=== PATIENT | male | born 1940 | race Caucasian/White ===

== ENCOUNTER 2023-06-25 19:13 | Emergency (ER) | payer MEDICARE, OTHER, SELFPAY ==
[2023-06-25 19:27] VITALS: BP 143/80
[2023-06-25 19:54] LABS: % Basophils 1.6 % (0-2); % Eosinophils 4.2 % (0-6); % Immature Granulocytes 0.4 % (0-0.5); % Lymphocytes 30.1 % (20.5-51.1); % Monocytes 7.6 % (1.7-9.3); % Neutrophils 56.1 % (42.2-75.2); Absolute Basophils 0.1 10^3/uL (0-0.2); Absolute Eosinophils 0.2 10^3/uL (0-0.7); Absolute Lymphocytes 1.5 10^3/uL (1.2-3.4); Absolute Monocytes 0.4 10^3/uL (0.1-0.6); Absolute Neutrophils 2.8 10^3/uL (1.4-6.5); Hematocrit 36.1 % (39.0-52.0); Hemoglobin 12.1 g/dL (13.0-18.0); Mean Corp Hgb Conc. 33.5 g/dL (33.0-37.0); Mean Corpuscular Volume 95.5 fL (80.0-94.0); Nucleated Red Blood Cells % 0 % (-); Platelet Count 240 10^3/uL (130-400); Red Blood Cell Count 3.78 10^6/uL (4.70-6.10); Red Cell Dist. Width 13.9 % (11.5-14.5)
[2023-06-25 20:02] LABS: Lactic Acid 1.2 mmol/L (0.7-2.0)
[2023-06-25 20:09] LABS: ALT (SGPT) 12 U/L (0-50); AST (SGOT) 21 U/L (17-59); Alkaline Phosphatase 64 U/L (38-126); Blood Urea Nitrogen 19 mg/dl (9-20); Calcium 9.5 mg/dl (8.4-10.2); Carbon Dioxide 25 mmol/L (22-30); Chloride 104 mmol/L (98-107); Glucose 115 mg/dl (70-99); Potassium 3.9 mmol/L (3.5-5.1); Sodium 141 mmol/L (135-145); Total Bilirubin 0.5 mg/dl (0.2-1.3); Total Protein 6.6 g/dl (6.3-8.2); eGFR > 60.00
[2023-06-25 22:24] VITALS: BP 148/78
[2023-06-25 23:08] VITALS: BP 129/75
--- NOTE | 2023-06-25 23:20 | EDRN ---
Updated patient on labs, and aware waiting for ultrasound report
--- NOTE | 2023-06-25 23:53 | ED.GENMED ---
History of Present Illness
General
Chief Complaint: Swelling
Source: patient and spouse
Exam Limitations: none
Time Seen by Provider: 06/25/23 23:01
Nursing documentation reviewed up to this point in time: agreed with
Travel History
Have you had any contact with someone who has COVID-19?: No
Do you have any symptoms of coronavirus? Fever > 100 degrees, chills, cough, shortness of breath, sore throat, loss of taste or smell, muscle aches, or headache?: No
History of Present Illness
History of Present Illness:
Patient status post left lower leg bypass surgery with Dr. Malcolm, vascular surgery, last month, presents to ED secondary to worsening swelling over the past 1 week. Patient was evaluated by Dr. Malcolm 1 week ago where he had graham removed from his
surgical site. Denies fever or chills. Denies loss of sensation or weakness of the affected leg. Denies trauma. Denies open drainage. Denies nausea or vomiting.
Past History
Past History
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
ED Past Surgical History: Orthopedic (lumbar spine fusion 2013) and Other (Vascular)
Social History
Tobacco: Non-smoker
Alcohol: None
Drug: None
Personal:
Living: with family
Employment: Retired
Family History
Family History: Other (reviewed and noncontributory)
Review of Systems
Review of Systems
Allergies reviewed?: Yes
All Other Systems: ROS reviewed and negative except as documented in HPI and ROS
Constitutional: Reports no symptoms
EENT: Reports no symptoms
Respiratory: Reports no symptoms
Cardiac: Reports no symptoms
ABD/GI: Reports no symptoms
: Reports no symptoms
Musculoskeletal: Reports other (Left leg swelling)
Skin: Reports no symptoms
Neurological: Reports no symptoms
Phy Exam
Physical Exam
Physical Exam:
Physical Exam
General: no apparent distress, not acutely ill. afebrile
Head: nc/at. eomi
Neck: supple. no meningeal signs.
Neuro: alert and oriented. no focal neurological deficits
Skin: LLE: well healed surgical scar noted with swelling/erythema, along with macular rash along lateral aspect. no open drainage.
Psychiatric: well kept. interactive and cooperative
Extremities: no edema. no calf tenderness.
Scores
Heart Failure Risk
Heart Failure Risk Score: Not Applicable
Course
Orders/Labs/Results
Orders:
Orders
06/25/23 19:43
Complete Blood Count/With Diff Urgent
Comprehensive Metabolic Panel Urgent
Lactate Level [Lactic Acid] Urgent
06/25/23 19:53
Periph Venous Lwr Ext Left US [US Periph Venous LOWER Ext LT] Urgent
Comment:
Reason For Exam: swelling
Abnormal Lab Results
06/25/23
19:43
RBC 3.78 L 10^6/uL
(4.70-6.10)
Hgb 12.1 L g/dL
(13.0-18.0)
Hct 36.1 L %
(39.0-52.0)
MCV 95.5 H fL
(80.0-94.0)
MCH 32.0 H pg
(27.0-31.0)
Glucose 115 H mg/dl
(70-99)
06/25/23 19:43
06/25/23 19:43
Vital Signs
Initial and Last Documented VS:
Initial Vital Signs
Temp Pulse Resp BP Pulse Ox
97.7 F 85 20 143/80 99
06/25/23 19:27 06/25/23 19:27 06/25/23 19:27 06/25/23 19:27 06/25/23 19:27
Last Documented Vital Signs
Temp Pulse Resp BP Pulse Ox
97.7 F 65 17 129/75 99
06/25/23 19:27 06/25/23 23:15 06/25/23 23:15 06/25/23 23:08 06/25/23 23:15
MDM/Problems Addressed
MDM/Problems Addressed:
Discussed findings with (vascular), including US report as well as photos via [employer]. Feels that findings are consistent with post-op swelling without any evidence of infection. Recommends elena wrap/elevation along with office f/u next
week.
*Critical Care Note
Total Time (30-74mins, 75-104mins- exclusive of procedures): Not Applicable
ED Attending Note
-
Portions of this chart may have been created with voice recognition software.� Occasional wrong word or��sound alike� substitutions may have occurred due to the inherent limitations of voice recognition software.
Discharge Plan
Departure
Patient Disposition: Home (Routine Discharge)
Date of Disposition: 06/26/23
Time of Disposition: 01:01
Patient with high blood pressure during this ER visit?: Yes
Condition: Good
Discharge Problem:
postop swelling
Instructions: Dependent Edema (DC)
Prescriptions:
No Action
famotidine 40 MG tablet
40 mg PO HS
tamsulosin 0.4 MG capsule
0.4 mg PO DAILY
esomeprazole magnesium [Nexium] 40 MG capsule,delayed release(DR/EC)
40 mg PO DAILY
multivitamin Tablet
1 tab PO DAILY
ascorbate calcium (vitamin C) 500 mg Tablet
1,000 mg PO DAILY
coenzyme Q10 [CoQ-10] 100 mg Capsule
150 mg PO DAILY
Osteo Bi-Flex Triple Strength 750 mg-644 mg- 30 mg-1 mg Tablet
2 tab PO DAILY
turmeric 400 mg Capsule
400 mg PO DAILY
Eliquis 5 MG tablet
5 mg PO BID Qty: 60 11RF
Patient Comments:
05/09/23-[facility]
carvedilol [Coreg] 25 mg Tablet
25 mg PO BID
Entresto 49-51 mg Tablet
0.5 tab PO BID
Patient Comments:
05/09/23-[facility]
furosemide [Lasix] 40 mg tablet
20 mg PO DAILY
atorvastatin 40 MG tablet
80 mg PO QPM
spironolactone 25 mg tablet
12.5 mg PO DAILY
magnesium oxide 420 mg Tablet
420 mg PO DAILY
tramadol 50 mg Tablet
50 mg PO BIDPRN PRN (Reason: severe pain)
cholecalciferol (vitamin D3) [Vitamin D3] 25 mcg (1,000 unit) Tablet
25 mcg PO DAILY
aspirin [Children's Aspirin] 81 mg Tablet,Chewable
81 mg PO DAILY Qty: 90 0RF
sennosides-docusate sodium [Stool Softener-Stimulant Laxat] 8.6-50 mg Tablet
1 tab PO DAILYPRN PRN (Reason: constipation) Qty: 20 0RF
oxycodone 5 mg Tablet
5 mg PO Q4HPRN PRN (Reason: moderate pain) Qty: 5 0RF
bacitracin 500 unit/gram ointment
1 applic topical BID Qty: 28 0RF
Referrals:
Eliseo Truong MD [Family Provider] -
Magnus Malcolm MD [Active] -
Activity Restrictions/Additional Instructions:
As discussed, please follow-up with your vascular surgeon next week for reevaluation. At home, strongly recommend continual utilization of provided elena wrap for compression, as well as leg elevation.
Interventions
Interventions:
*Risk Screen - Suicide Last Done: 06/25/23 19:27
*General Assessment Last Done: 06/25/23 19:27
*Neglect/Abuse Screening Last Done: 06/25/23 19:27
ED- Fall Risk Assessment Last Done: 06/25/23 19:27
*ED COVID-19 Vaccine History Last Done: 06/25/23 19:27
ED- Cardiac Assessment Last Done: 06/25/23 23:20
ED- Pulmonary Assessment Last Done: 06/25/23 23:20
ED-Skin Assessment Last Done: 06/25/23 23:20
[2023-06-26] VITALS: BP 146/73
[2023-06-26 01:00] VITALS: BP 151/64
--- NOTE | 2023-06-26 01:20 | EDRN ---
Leeroy wrap applied to lower leg and patient wheeled out front
== END 2023-06-26 01:44 | disposition home or self-care (01) ==
LOC: EMR 19:13
PROVIDERS: Student in an Organized Health Care Education/Training Program; EMERGENCY PHYSICIAN Emergency Medicine; FAMILY PHYSICIAN Family Medicine
DX: I97.89 Other postprocedural complications and disorders of the circulatory system, not elsewhere classified (principal); Y83.8 Other surgical procedures as the cause of abnormal reaction of the patient, or of later complication, without mention of misadventure at the time of the procedure; R22.42 Localized swelling, mass and lump, left lower limb; I48.91 Unspecified atrial fibrillation; K21.9 Gastro-esophageal reflux disease without esophagitis; I10 Essential (primary) hypertension; E78.00 Pure hypercholesterolemia, unspecified; I73.9 Peripheral vascular disease, unspecified; M19.90 Unspecified osteoarthritis, unspecified site; Z86.718 Personal history of other venous thrombosis and embolism; Z86.711 Personal history of pulmonary embolism; Z86.73 Personal history of transient ischemic attack (TIA), and cerebral infarction without residual deficits; Z79.82 Long term (current) use of aspirin; Z79.01 Long term (current) use of anticoagulants; Z98.1 Arthrodesis status
CPT/HCPCS: 80053; 83605; 85025; 93971; 99284

== ENCOUNTER → 2023-09-15 12:55 | Outpatient (REF) | payer MEDICARE, OTHER, SELFPAY | LOC: DHVS 12:55 | PROVIDERS: ATTENDING PHYSICIAN Physician Assistant | DX: I73.9 Peripheral vascular disease, unspecified (principal) | CPT/HCPCS: 93922; 93925 ==

== ENCOUNTER 2023-10-05 06:01 | Day surgery (SDC) | payer MEDICARE, OTHER, SELFPAY ==
[2023-10-05] VITALS (19 sets, daily range): BP systolic 12–156; BP diastolic 61–91; BMI 29.6
[2023-10-05] MEDS: NSS 500 IV (06:10)
[2023-10-05 06:44] LABS: Hemoglobin 12.1 g/dL (13.0-18.0); Mean Corp Hgb Conc. 34.6 g/dL (33.0-37.0); Mean Corpuscular Hgb 30.7 pg (27.0-31.0); Mean Corpuscular Volume 88.8 fL (80.0-94.0); Mean Platelet Volume 9.5 fL (7.4-10.4); Platelet Count 195 10^3/uL (130-400); Red Blood Cell Count 3.94 10^6/uL (4.70-6.10); Red Cell Dist. Width 13.4 % (11.5-14.5); White Blood Cell Count 5.1 10^3/uL (4.8-10.8)
[2023-10-05 06:53] LABS: INR 1.21; PT 15.2 Sec (11.4-14.6)
[2023-10-05 06:54] LABS: APTT 34.3 Sec (23.4-35.0)
[2023-10-05 07:08] LABS: Blood Urea Nitrogen 21 mg/dl (9-20); Calcium 9.9 mg/dl (8.4-10.2); Carbon Dioxide 27 mmol/L (22-30); Chloride 107 mmol/L (98-107); Estimated Creatinine Clearance 55 ml/min; Glucose 97 mg/dl (70-99); Potassium 3.8 mmol/L (3.5-5.1); Sodium 141 mmol/L (135-145); eGFR > 60.00
--- NOTE | 2023-10-05 07:46 | W.SUR.PREOP ---
Pre-Operative Surgical Note
-
I have examined this patient prior to the performance of the scheduled procedure.
The patient's condition is unchanged from the time of the current History and
Physical and the patient is able to undergo the scheduled procedure.
--- NOTE | 2023-10-05 08:48 | W.SUR.POST ---
Surgical Immediate Post Op
Note
Pre Op Diagnosis: PAD
Post Op Diagnosis: Same
Procedure Performed: Left lower extremity angiogram, left balloon angioplasty with drug-coated balloon of bypass stenosis
Primary Surgeon: Gold
Anesthesia: Local and sedation
Estimated Blood Loss: <2cc
Fluids: See anesthesia flowsheet
Drains/Shunts: None
Specimens/Cultures: None
Doppler/Duplex/Angio (Y/N): Y
Complications: None
Operative Findings: doppler PT, palpable graft pulse
[2023-10-05] MEDS: NSS 1000 IV (10:08)
[2023-10-05] MEDS: LOW STRENGTH ASPIRIN 81 MG PO (10:09)
--- NOTE | 2023-10-05 10:27 | OR.RPT ---
Operative Report
Operative Report
PROCEDURE DATE: 10/05/2023
Preoperative diagnosis:
1. Peripheral arterial disease.
2. Failing left lower extremity arterial bypass graft.
Postoperative diagnosis: Same
Procedure:
1. Duplex assisted right common femoral artery cannulation.
2. Aortogram and pelvic angiogram.
3. Left lower extremity arteriogram with third order vessel catheterization of left peroneal artery via right common femoral artery puncture.
4. Standard balloon angioplasty of proximal and distal anastomotic stenoses and venous stenoses in bypass graft with 3.5 mm angioplasty balloon.
5. Drug-coated balloon angioplasty of left lower extremity bypass graft stenoses with 4 mm x 220 mm Bard Lutonix drug-coated balloon.
6. Right femoral angiogram.
7. Supervision interpretation.
Surgeon: Gold
Automotive Glass Installer: None
Complications: None
Anesthesia: Local, sedation
Fluoroscopy:
9.9 min
80 mGy
26.40 Gy.cm2
Indications for procedure:
Surveillance duplex demonstrated proximal anastomotic vicinity bypass graft stenosis of distal SFA to below-knee popliteal artery vein bypass conduit. Risk/benefits/alternatives of angiography/intervention for salvage were all fully discussed.
Patient understood all wish to proceed.
Description of procedure:
Patient was identified, brought to the operating room. Placed on the table in the supine position. After the adequate administration of anesthesia, the patient was prepped and draped in the standard surgical fashion. A standard preoperative
timeout was undertaken and everybody was in agreement with the plan.
The right common femoral artery was accessed with a micropuncture kit under direct duplex ultrasound guidance. A 5 Macedonian sheath was then advanced over a 0.035 inch wire, and a hernandez's hook catheter was advanced into the abdominal aorta.
Aortogram and pelvic angiogram was obtained. Findings as follows:
Infrarenal aorta: Patent with some atherosclerosis and mild ectasia distally but no overt aneurysm. No overt stenosis.
Right common iliac artery: [Patent with no significant stenosis]
Right external iliac artery:[Patent with no significant stenosis]
Left common iliac artery:[Patent with no significant stenosis]
Left external iliac artery:[Patent with no significant stenosis]
Using a floppy angled hydrophilic wire, the left common femoral artery was cannulated and the catheter was advanced. Left lower extremity arteriogram was obtained. Findings as follows:
Common femoral artery:[Patent with no significant stenosis]
Profunda femoris artery:[Patent with no significant stenosis]
Superficial femoral artery: Diffuse luminal irregularities but no significant stenosis. Distal superficial femoral artery just at the juncture of above-knee popliteal artery with heavy plaque and then occlusion. Bypass graft initially was not
visualized but on delayed imaging could make outflow into the bypass graft. However the proximal anastomosis was poorly visualized likely due to high-grade stenosis.
Popliteal artery: Occluded above the knee, patent behind and below knee. Distal anastomosis of bypass graft could be seen on delayed imaging and appear to be stenotic.
Anterior tibial artery: Chronic occluded
Tibial peroneal trunk: Patent with no significant stenosis, luminal irregularities present.
Peroneal artery: Patent with no significant stenosis, diffuse luminal irregularities noted. Dominant runoff vessel to the foot. Poor collateralization into the foot with no real named vessels in the foot.
Posterior tibial artery: Chronically occluded.
At this point I selectively cannulated the superficial femoral artery and then exchanged for a 6 Macedonian up and over sheath over a Storq wire. The patient was given 7000 units of intravenous heparin. Next under roadmap assisted guidance I was able
to gain wire access into the bypass graft using a flap angled hydrophilic wire. Slightly difficult given that the origin of the bypass graft was not opacifying well. Once I did so I was able to advance my catheter over the wire. Then performed
angiography of the remainder of the bypass graft which demonstrated the distal 4 to 6 cm of the bypass graft including the distal anastomosis was diffusely stenotic/small. The popliteal artery below the or distal to the anastomosis was patent.
Next using a flopping on hydrophilic wire I was able to gain wire access into the outflow and into the peroneal artery. I then exchanged for a 0.014 inch wire. Next I performed balloon angioplasty of the proximal and distal segments of the
graft/anastomoses using a 3.5 mm angioplasty balloon (standard angioplasty balloon. Completion angiogram demonstrated some improvement but there was still mild residual stenosis at the proximal anastomosis and then also about 3 cm beyond the origin
there was a focal area of severe stenosis or web in the vein. The distal anastomotic or distal portion of the vein also appeared mildly persistently stenotic. Next I exchanged back for a 0.035 inch wire. I then used a long 4 mm drug-coated Bard
Lutonix balloon. (4 mm x 220 mm). Prolonged inflation over 2 minutes was performed. Completion angiogram now demonstrated excellent result with complete resolution of the stenoses. Good flow through the vein graft. Stable flow into the runoff.
At this point I satisfied. I withdrew my sheath to the right external iliac artery. Right femoral angiogram demonstrated good puncture in the right common femoral artery. The wires and catheters were withdrawn. The sheath was withdrawn and
manual pressure was applied. Protamine was given to reverse the heparin.
The patient tolerated procedure well. Upon completion he had a palpable left lower extremity graft pulse as well as a good dopplerable signal in the vicinity of the posterior tibial artery.
== END 2023-10-05 15:27 | disposition home or self-care (01) ==
LOC: CATH 06:01
PROVIDERS: ATTENDING PHYSICIAN Surgery Vascular Surgery; FAMILY PHYSICIAN Family Medicine
DX: T82.858D Stenosis of other vascular prosthetic devices, implants and grafts, subsequent encounter (principal); Y83.2 Surgical operation with anastomosis, bypass or graft as the cause of abnormal reaction of the patient, or of later complication, without mention of misadventure at the time of the procedure; I70.202 Unspecified atherosclerosis of native arteries of extremities, left leg; I70.302 Unspecified atherosclerosis of unspecified type of bypass graft(s) of the extremities, left leg; I10 Essential (primary) hypertension; Z86.718 Personal history of other venous thrombosis and embolism; Z86.73 Personal history of transient ischemic attack (TIA), and cerebral infarction without residual deficits; Z86.711 Personal history of pulmonary embolism; Z79.01 Long term (current) use of anticoagulants
CPT/HCPCS: 37226; C1874; C1725; 37224; 75625; 75716; 76937; 80048; 85027; 85610; 85730; 86850; 86900; 86901; Q9967

== ENCOUNTER → 2023-11-14 15:05 | Outpatient (REF) | payer MEDICARE, OTHER, SELFPAY | LOC: RAD 15:05 | PROVIDERS: ATTENDING PHYSICIAN Surgery Vascular Surgery; FAMILY PHYSICIAN Family Medicine | DX: I73.9 Peripheral vascular disease, unspecified (principal) | CPT/HCPCS: 93922; 93925 ==

== ENCOUNTER → 2023-12-06 13:04 | Outpatient (REF) | payer MEDICARE, OTHER, SELFPAY | LOC: RCS 13:04 | PROVIDERS: ATTENDING PHYSICIAN Nuclear Medicine Nuclear Cardiology; FAMILY PHYSICIAN Family Medicine; REFERRING PHYSICIAN Surgery Vascular Surgery | DX: I48.19 Other persistent atrial fibrillation (principal); I42.9 Cardiomyopathy, unspecified | CPT/HCPCS: 93306 ==

== ENCOUNTER → 2024-05-22 11:00 | Outpatient (REF) | payer MEDICARE, OTHER, SELFPAY | LOC: CLAB 11:00 | PROVIDERS: ATTENDING PHYSICIAN Otolaryngology | DX: J32.8 Other chronic sinusitis (principal) | CPT/HCPCS: 87070; 87077; 87186 ==

== ENCOUNTER → 2024-05-24 10:55 | Outpatient (REF) | payer MEDICARE, OTHER, SELFPAY | LOC: RAD 10:55 | PROVIDERS: ATTENDING PHYSICIAN Registered Nurse; FAMILY PHYSICIAN Family Medicine | DX: I73.9 Peripheral vascular disease, unspecified (principal) | CPT/HCPCS: 93922; 93925 ==

== ENCOUNTER 2024-06-18 08:18 | Day surgery (SDC) | payer MEDICARE, OTHER, SELFPAY ==
[2024-06-18] VITALS (14 sets, daily range): BP systolic 105–153; BP diastolic 61–92; BMI 32.3
[2024-06-18] MEDS: NSS 500 IV ×2 (08:50→11:46)
[2024-06-18 08:55] LABS: Hematocrit 43.3 % (39.0-52.0); Hemoglobin 14.4 g/dL (13.0-18.0); Mean Corp Hgb Conc. 33.3 g/dL (33.0-37.0); Mean Corpuscular Volume 96.2 fL (80.0-94.0); Mean Platelet Volume 9.4 fL (7.4-10.4); Platelet Count 205 10^3/uL (130-400); Red Cell Dist. Width 12.6 % (11.5-14.5); White Blood Cell Count 5.3 10^3/uL (4.8-10.8)
[2024-06-18 09:07] LABS: Blood Urea Nitrogen 18 mg/dl (9-20); Calcium 9.4 mg/dl (8.4-10.2); Carbon Dioxide 30 mmol/L (22-30); Chloride 103 mmol/L (98-107); Estimated Creatinine Clearance 59 ml/min; Glucose 93 mg/dl (70-99); INR 1.14; PT 14.9 Sec (11.4-14.6); Potassium 4.5 mmol/L (3.5-5.1); Sodium 142 mmol/L (135-145); eGFR > 60.00
[2024-06-18 09:08] LABS: APTT 33.1 Sec (23.4-35.0)
--- NOTE | 2024-06-18 11:14 | OR.RPT ---
Operative Report
Operative Report
PROCEDURE DATE: 06/18/2024
Preoperative diagnosis:
1. Severe peripheral arterial disease status post left lower extremity bypass.
2. Failing left lower extremity bypass.
Postoperative diagnosis: Same
Procedure:
1. Duplex assisted right common femoral artery cannulation.
2. Aortogram and pelvic angiogram.
3. Left lower extremity arteriogram with third order vessel catheterization of left tibioperoneal trunk via right common femoral artery puncture.
4. Balloon angioplasty of left lower extremity bypass graft stenoses with 3 mm, 3.5 mm, 3.5 mm noncompliant, 4 mm drug-coated balloons.
5. Right femoral angiogram and Villalba Perclose percutaneous suture closure.
6. Supervision and interpretation.
Surgeon: Gold
Senior Talent Management Consultant: None
Complications: None
Anesthesia: Local, sedation
Fluoroscopy:
19.1 min
106 mGy
30.93 Gy.cm2
Indications for procedure:
History of known left lower extremity peripheral arterial disease I had performed left distal SFA to below the knee popliteal artery bypass with ipsilateral venous conduit 05/12/2023. Subsequently had a vein bypass graft stenosis that required
angioplasty for graft preservation. Now with surveillance duplex demonstrated again severe velocity elevation suggesting high-grade stenoses. Was brought again for bypass graft preservation angiography.) alternatives of were discussed. Patient
understood and wished to proceed.
Description of procedure:
Patient was identified, brought to the operating room. Placed on the table in the supine position. After the adequate administration of anesthesia, the patient was prepped and draped in the standard surgical fashion. A standard preoperative
timeout was undertaken and everybody was in agreement with the plan.
The right common femoral artery was accessed with a micropuncture kit under direct duplex ultrasound guidance. A 5 Macedonian sheath was then advanced over a 0.035 inch wire, and a hernandez's hook catheter was advanced into the abdominal aorta.
Aortogram and pelvic angiogram was obtained. Findings as follows:
Infrarenal aorta: Patent with no significant stenosis.
Right common iliac artery: Patent with no significant stenosis
Right external iliac artery:Patent with no significant stenosis
Left common iliac artery:Patent with no significant stenosis
Left external iliac artery:Patent with no significant stenosis
Using a floppy angled hydrophilic wire, the left common femoral artery was cannulated and the catheter was advanced. Left lower extremity arteriogram was obtained. Findings as follows:
Common femoral artery: Patent with no significant stenosis
Profunda femoris artery:Patent with no significant stenosis
Superficial femoral artery: Patent with luminal irregularities and some calcified plaque. No significant stenosis in the proximal half to two thirds. Artery then occluded (chronically) distally. Bypass graft filling was not well-seen.
Preferential filling of collaterals that reconstituted the behind knee popliteal artery. I could see what appeared to be an nub of the bypass graft on delayed imaging.
Popliteal artery: Occluded above the knee, reconstituted via collaterals behind the knee. Distal anastomosis of graft not well-seen.
Anterior tibial artery: Chronically occluded.
Tibial peroneal trunk: Patent with no significant stenosis, and luminal irregularities noted.
Peroneal artery: Patent with no significant stenosis, diffuse luminal irregularities. Dominant runoff vessel to the foot. Poor collaterals to the foot.
Posterior tibial artery: On very delayed imaging could now see filling of the distal posterior tibial artery at the ankle somewhat intermittently. Relatively poor runoff into the foot.
At this point I selectively cannulated the superficial femoral artery and then exchanged for a Storq wire and an up and over 6 Macedonian sheath. The patient was given a total of 8000 units of intravenous heparin. Next under roadmap assisted guidance,
I was able to cannulate the small nub of the bypass graft that I visualize. Once I was able to cannulate this my wire was able to pass through and then I advanced the catheter. I withdrew to confirm that the bypass graft was not occluded, and I
was able to withdraw blood. I therefore then obtained an angiogram through the bypass graft. This demonstrated patent mid to distal bypass graft with severe distal bypass graft recurrent stenosis. The distal 3 or 4 cm extending into the
anastomosis appeared diffusely severely stenotic. The proximal bypass graft also appeared to have a moderate proximal stenosis. At this point I gained wire access into the tibioperoneal trunk and then exchanged for a 0.014 inch PHOTOGRAPHER AERIAL wire. I then
performed balloon angioplasty of the entirety of the bypass graft with a 3 mm angioplasty balloon. Completion angiogram now demonstrated flow through the bypass graft, but still residual distal stenosis, possibly proximal anastomotic area as well.
Therefore then used a 3.5 mm balloon with overlapping inflations to balloon the entirety of the bypass graft again. Completion angiogram demonstrated a reasonable result, but there was still some residual especially at the distal anastomosis
stenosis. The balloon in addition could not completely resolved a mild waist although majority of it resolved. I therefore then try to switch order 3.5 mm balloon, but this kept watermelon seeding forward or backward. I tried a 3.5 mm
noncompliant balloon. However this failed to do any better. I therefore then exchanged for a 0.018 inch wire and used a 4 mm Bard Lutonix drug-coated balloon with prolonged inflation at the distal anastomosis. 2-minute inflation was undertaken.
I then withdrew the balloon and then ballooned the proximal anastomosis with the same balloon with a prolonged inflation as well. Completion angiogram now demonstrated much better result. Good flow through the bypass graft. There was still some
mild residual recoil distally, but minimal. In addition the bypass graft filling far exceeded and was faster than any other collaterals (in contrast to the initial angiogram I performed before any angioplasty). At this point I felt that there was
not much else I could render endovascularly. I debated placing a stent at the distal anastomosis (stent scaffold), but my concern was it would encompass the anastomosis and the stent would have to extend into the below the knee popliteal artery.
Therefore at this point, I withdrew my sheath to the right external iliac artery over a 0.035 inch wire. Right femoral angiogram demonstrated good puncture in the right common femoral artery. I therefore then used an GroundCntrl Perclose percutaneous
suture closure. Patient was also given 30 mg of protamine reverse heparin. Hemostasis was fully noted but additional manual pressure was applied to confirm full hemostasis. Patient tolerated procedure well.
== END 2024-06-18 13:45 | disposition home or self-care (01) ==
LOC: CATH 08:18
PROVIDERS: ATTENDING PHYSICIAN Surgery Vascular Surgery; FAMILY PHYSICIAN Family Medicine; OTHER PHYSICIAN Nuclear Medicine Nuclear Cardiology
DX: T82.858D Stenosis of other vascular prosthetic devices, implants and grafts, subsequent encounter (principal); Y83.2 Surgical operation with anastomosis, bypass or graft as the cause of abnormal reaction of the patient, or of later complication, without mention of misadventure at the time of the procedure; Z79.01 Long term (current) use of anticoagulants; Z79.82 Long term (current) use of aspirin; Z79.899 Other long term (current) drug therapy; K21.9 Gastro-esophageal reflux disease without esophagitis; Z86.73 Personal history of transient ischemic attack (TIA), and cerebral infarction without residual deficits; I10 Essential (primary) hypertension; I70.202 Unspecified atherosclerosis of native arteries of extremities, left leg; Z86.718 Personal history of other venous thrombosis and embolism; Z86.711 Personal history of pulmonary embolism; Z95.820 Peripheral vascular angioplasty status with implants and grafts; Z87.891 Personal history of nicotine dependence
CPT/HCPCS: 37224; 75625; 75716; 80048; 85027; 85610; 85730; 86850; 86900; 86901; C1725; C1760; C1769; C1887; C1894; Q9967

== ENCOUNTER → 2024-07-19 08:54 | Outpatient (REF) | payer MEDICARE, OTHER, SELFPAY | LOC: RAD 08:54 | PROVIDERS: ATTENDING PHYSICIAN Surgery Vascular Surgery; FAMILY PHYSICIAN Family Medicine | DX: I73.9 Peripheral vascular disease, unspecified (principal) | CPT/HCPCS: 93922; 93925 ==

== ENCOUNTER → 2024-12-31 12:48 | Outpatient (REF) | payer MEDICARE, OTHER, SELFPAY | LOC: RCS 12:48 | PROVIDERS: ATTENDING PHYSICIAN Nuclear Medicine Nuclear Cardiology; FAMILY PHYSICIAN Family Medicine | DX: I10 Essential (primary) hypertension (principal); I48.21 Permanent atrial fibrillation; I42.9 Cardiomyopathy, unspecified; E78.2 Mixed hyperlipidemia | CPT/HCPCS: 93306 ==

== ENCOUNTER → 2025-01-30 10:42 | Outpatient (REF) | payer MEDICARE, OTHER, SELFPAY | LOC: RAD 10:42 | PROVIDERS: ATTENDING PHYSICIAN Surgery Vascular Surgery; FAMILY PHYSICIAN Family Medicine | DX: I73.9 Peripheral vascular disease, unspecified (principal) | CPT/HCPCS: 93922; 93925 ==

== ENCOUNTER 2025-02-14 09:59 | Day surgery (SDC) | payer MEDICARE, OTHER, SELFPAY ==
[2025-02-14] VITALS (9 sets, daily range): BP systolic 14–159; BP diastolic 71–94; BMI 29.8
[2025-02-14 10:50] LABS: Hematocrit 42.0 % (39.0-52.0); Hemoglobin 14.0 g/dL (13.0-18.0); Mean Corp Hgb Conc. 33.3 g/dL (33.0-37.0); Mean Corpuscular Volume 94.0 fL (80.0-94.0); Platelet Count 234 10^3/uL (130-400); Red Cell Dist. Width 12.5 % (11.5-14.5)
[2025-02-14 11:07] LABS: Blood Urea Nitrogen 15 mg/dl (9-20); Calcium 10.1 mg/dl (8.4-10.2); Carbon Dioxide 23 mmol/L (22-30); Chloride 109 mmol/L (98-107); Estimated Creatinine Clearance 69 ml/min; Glucose 92 mg/dl (70-99); INR 0.99; PT 13.6 Sec (11.4-14.6); Potassium 4.5 mmol/L (3.5-5.1); Sodium 141 mmol/L (135-145); eGFR > 60.00
[2025-02-14 11:08] LABS: APTT 31.9 Sec (23.4-35.0)
--- NOTE | 2025-02-14 12:57 | W.SUR.PREOP ---
Pre-Operative Surgical Note
-
I have examined this patient prior to the performance of the scheduled procedure.
The patient's condition is unchanged from the time of the current History and
Physical and the patient is able to undergo the scheduled procedure.
Findings of ultrasound dated 01/30/2025. Bypasses patent but there is worsened velocity elevation at distal anastomosis with low velocities through the remainder of the bypass graft. Discussed rationale for angiography for attempted graft
preservation. I did discuss that there is a potential that the graft is occluded in which case there is nothing further I could render at this time. We have to have a discussion if indicated in the future as to revascularization strategies, and
there may be none and he understands that. If the graft is patent, and there is a stenosis, then we will plan potential angioplasty/stenting. Procedure as well as risks including but not limited to bleeding, arterial injury/worsened or acute limb
ischemia, recurrent stenoses, thrombotic complications, renal failure all discussed. Patient understands all wishes to proceed.
--- NOTE | 2025-02-14 14:45 | OR.RPT ---
Operative Report
Operative Report
PROCEDURE DATE: 02/14/2025
Preoperative diagnosis:
1. Severe peripheral arterial disease.
2. Imminently failing left lower extremity bypass graft.
Postoperative diagnosis: Same
Procedure:
1. Duplex assisted cannulation of right common femoral artery.
2. Aortogram and pelvic angiogram.
3. Left lower extremity arteriogram with third order vessel catheterization of left peroneal artery via right common femoral artery puncture.
4. Balloon angioplasty of left distal bypass graft stenosis with 4 mm x 4 cm Bard Lutonix drug-coated balloon.
5. Placement of Villalba Espirit Stent Scaffold 3.5mm x 38mm left distal bypass graft refractory stenosis. Postangioplasty with high-pressure balloon.
6. Balloon angioplasty of mid bypass graft stenosis with high-pressure angioplasty balloon.
7. Right femoral angiogram and Villalba Pro-glide percutaneous suture closure.
8. Supervision and interpretation.
Surgeon: Gold
Marshmallow Runner: None
Complications: None
Anesthesia: Local, sedation
Fluoroscopy:
12.7 min
113 mGy
25.97 gy.cm2
Indications for procedure:
Recurrent severe stenoses left lower extremity bypass graft with concern for imminently failing bypass graft. Risk/benefits/alternatives were fully discussed. Patient understood all wished to proceed.
Description of procedure:
Patient was identified, brought to the operating room. Placed on the table in the supine position. After the adequate administration of anesthesia, the patient was prepped and draped in the standard surgical fashion. A standard preoperative
timeout was undertaken and everybody was in agreement with the plan.
The right common femoral artery was accessed with a micropuncture kit under direct duplex ultrasound guidance. A 5 Czech sheath was then advanced over a 0.035 inch wire, and a hernandez's hook catheter was advanced into the abdominal aorta.
Aortogram and pelvic angiogram was obtained. Findings as follows:
Patent infrarenal abdominal aorta and bilateral iliac arteries (common and external iliac arteries) with moderate tortuosity especially of the left iliac system, but no significant stenosis. Mild ectasia of the distal infrarenal abdominal aorta.
Using a floppy angled hydrophilic wire, the left common femoral artery was cannulated and the catheter was advanced. Left lower extremity arteriogram was obtained. Findings as follows:
Common femoral artery: Patent with no significant stenosis.
Profunda femoris artery: Patent with no significant stenosis
Superficial femoral artery: Luminal irregularities, but patent with no significant stenosis to the distal thigh where it occluded. Large collateral could be seen emanating. Just proximal to the collateral on delayed imaging we could see filling
into the bypass graft. The bypass graft filled slowly but did opacify all the way down to anastomosis to the below knee popliteal artery.
Popliteal artery: Reconstitution of the distal above-knee/behind knee/below the knee popliteal artery without significant stenosis but some luminal irregularities. As noted distal bypass graft anastomosis to the below-knee popliteal artery could be
seen.
Anterior tibial artery: Occluded
Tibial peroneal trunk: Patent with no significant stenosis.
Peroneal artery: Patent, dominant runoff vessel to the foot
Posterior tibial artery: Occluded, but reconstituted via peroneal collaterals on the ankle/foot. Fairly diseased distal artery.
At this point I selectively cannulated the superficial femoral artery and then exchanged for a Storq wire and an up and over 5 Czech 70 cm sheath. The patient was given 7000 units of intravenous heparin. Next under roadmap assisted guidance I was
able to use a floppy angled hydrophilic wire and a CXI catheter to cannulate the bypass graft. Then under roadmap assisted guidance I was able to gain wire access into the peroneal artery through the distal anastomotic stenosis. At this point, I
exchanged for a 0.018 inch wire. I then performed balloon angioplasty with a Bard Lutonix 4 mm x 4 cm drug-coated balloon with prolonged standard inflation time. I could not get the balloon to completely resolve the waist, of the diffuse stenosis
over the course of about 3 cm. Completion angiogram demonstrated improvement but still residual stenosis. Therefore I elected to place a stent scaffold using the Villalba Espirit stent scaffold. I therefore then exchanged for a 0.014 inch wire. I
then used a 3.5 x 38 mm stent scaffold. I positioned it such that the distal aspect was just barely jetting into the popliteal artery but not really. It encompassed the entirety of the stenosis. I then ballooned this into place following the
balloon inflation protocol. Next a used a Euphora 3.5 x 20mm high-pressure noncompliant angioplasty balloon to post angioplastied. Completion angiogram demonstrated excellent result with significant improvement of the stenosis. There was brisk
flow through this segment. At this point I imaged the remainder of the bypass graft again with an angiogram. I did note that there was a proximal to mid graft focal high-grade stenosis. I therefore then used the same noncompliant 3.5 mm balloon
to angioplasty it. Initially had trouble as the balloon kept watermelon seeding backward. However once I was able to stabilize it, I was able to angioplasty it. And as I slowly dilated up the pressure, I finally got the waist to resolved.
Completion angiogram now demonstrated an excellent result with complete resolution of that stenosis. Good flow through the bypass graft now. At this point is very satisfied. I confirmed preserved flow into the runoff. I therefore then exchanged
back for a 0.035 inch wire and then withdrew my sheath to the right external iliac artery. Right femoral angiogram demonstrated good puncture in the right common femoral artery. I therefore then used an Villalba Pro-glide percutaneous suture closure
for the common femoral artery. Manual pressure was also applied. Hemostasis in the right groin was fully achieved. The patient tolerated the procedure well.
[2025-02-14] MEDS: NSS 1000 IV (15:00)
== END 2025-02-14 17:30 | disposition home or self-care (01) ==
LOC: CATH 09:59
PROVIDERS: ATTENDING PHYSICIAN Surgery Vascular Surgery; OTHER PHYSICIAN Nuclear Medicine Nuclear Cardiology; PRIMARYCARE PHYSICIAN Family Medicine
DX: T82.858A Stenosis of other vascular prosthetic devices, implants and grafts, initial encounter (principal); Y83.2 Surgical operation with anastomosis, bypass or graft as the cause of abnormal reaction of the patient, or of later complication, without mention of misadventure at the time of the procedure; I73.9 Peripheral vascular disease, unspecified; Z79.01 Long term (current) use of anticoagulants; Z79.82 Long term (current) use of aspirin; Z79.899 Other long term (current) drug therapy; Z86.73 Personal history of transient ischemic attack (TIA), and cerebral infarction without residual deficits; M48.00 Spinal stenosis, site unspecified
CPT/HCPCS: 37226; 75625; 75710; 80048; 85027; 85610; 85730; 86850; 86900; 86901; C1725; C1760; C1769; C1874; C1887; C1894; C2623; Q9967

== ENCOUNTER → 2025-02-28 13:48 | Outpatient (REF) | payer MEDICARE, OTHER, SELFPAY | LOC: DHVS 13:48 | PROVIDERS: ATTENDING PHYSICIAN Surgery Vascular Surgery; FAMILY PHYSICIAN Family Medicine | DX: I73.9 Peripheral vascular disease, unspecified (principal) | CPT/HCPCS: 93922; 93925 ==

== ENCOUNTER 2025-04-01 22:38 | Observation (INO) | payer MEDICARE, OTHER, SELFPAY ==
[2025-04-01 15:14] VITALS: BP 136/83
[2025-04-01 15:35] LABS: Hematocrit 37.3 % (39.0-52.0); Hemoglobin 12.6 g/dL (13.0-18.0); Mean Corp Hgb Conc. 33.8 g/dL (33.0-37.0); Mean Corpuscular Volume 94.2 fL (80.0-94.0); Nucleated Red Blood Cells % 0 % (-); Platelet Count 174 10^3/uL (130-400); Red Cell Dist. Width 13.2 % (11.5-14.5)
[2025-04-01 15:55] LABS: ALT (SGPT) 19 U/L (0-50); AST (SGOT) 29 U/L (17-59); Albumin 4.2 g/dl (3.5-5.0); Alkaline Phosphatase 51 U/L (38-126); Blood Urea Nitrogen 24 mg/dl (9-20); Calcium 9.0 mg/dl (8.4-10.2); Carbon Dioxide 27 mmol/L (22-30); Chloride 101 mmol/L (98-107); Glucose 105 mg/dl (70-99); Potassium 3.8 mmol/L (3.5-5.1); Sodium 135 mmol/L (135-145); Total Protein 6.8 g/dl (6.3-8.2); eGFR > 60.00
[2025-04-01 18:18] VITALS: BMI 36.1
--- NOTE | 2025-04-01 19:12 | ED.GENMED ---
History of Present Illness
General
Chief Complaint: Fall
Source: patient
Exam Limitations: none
Time Seen by Provider: 04/01/25 18:34
History of Present Illness
History of Present Illness:
84-year-old male sent over primarily for breathing concerns. Patient returned from [place] 2 days ago. He tripped and fell yesterday from the airport. No he hit his face and complains of some right hip and right elbow pain. There was no syncope
associated with this. He [facility], there was concerns of his breathing and he was sent for further evaluation. He denies neck pain headache. He is on Eliquis and faithful. He has some right elbow pain. Is able
to fully ambulate and drove himself to the hospital.
Past History
Past History
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
ED Past Surgical History: Orthopedic (lumbar spine fusion 2013) and Other (Vascular)
Social History
Tobacco: Non-smoker
Alcohol: None
Drug: None
Personal:
Living: with family
Employment: Retired
Family History
Family History: Other (reviewed and noncontributory)
Review of Systems
Review of Systems
All Other Systems: Not applicable
Constitutional: Denies fever
Respiratory: Denies cough or hemoptysis
Cardiac: Denies chest pain
Phy Exam
Physical Exam
Physical Exam:
GENERAL: Alert and oriented in no apparent distress
EYE: Mild area of ecchymosis over the right eye. Mild lip swelling.
NECK: Supple, nontender
ENT: Pharynx without erythema
CARDIAC: Regular rate and rhythm without any obvious murmurs.
LUNGS: No respiratory distress however mild end expiratory wheezing diffusely
ABDOMEN: Soft, without focal tenderness or distention
NEUROLOGICAL: Alert and oriented , grossly non-focal
SKIN: Warm and dry, no rash or lesion, no discoloration, skin intact.
MUSCULOSKELETAL: No edema,no deformity.Good color
PSYCH: Normal and appropriate interaction.
Course
Orders/Labs/Results
Orders:
Orders
04/01/25 Breakfast
Regular
At Your Request: Full Participation
04/01/25 15:22
CT Head W/o Iv Contrast Urgent
Comment:
Reason For Exam: fall, hit head, on Eliquis
04/01/25 15:27
CMP [Comprehensive Metabolic Panel] Urgent
Complete Blood Count/With Diff Urgent
04/01/25 18:54
CXR2 [CR Chest - 2 Views ] Urgent
Comment:
Reason For Exam: Wheezing
Elbow, Right 3 View [CR Elbow - Right Min 3 Views] Urgent
Comment:
Reason For Exam: trauma
Hip, Right 2-3 Views [CR Hip - RT w/wo Pel 2-3 Vw*] Urgent
Comment:
Reason For Exam: trauma
Include a pelvis x-ray?: Yes
Humerus, Right 2 Views [CR Humerus - Right Min 2 View*] Urgent
Comment:
Reason For Exam: trauma
04/01/25 18:55
EKG [Electrocardiogram (*1)] Urgent
Reason for Study: Palpitations
EKG- Treatment ONCE
Ipratropium/Albuterol Sulfate [Duoneb] 3 ml INH R NOW ONE
04/01/25 19:36
COVID-19 Antigen Urgent
Source: Nasal Swab
NT-proBNP Urgent
Troponin I Urgent
Influenza A+B Rapid Molecular Urgent
LENA Source: Nasal Swab
Specimen Description:
04/01/25 20:54
Albuterol Nebs [Ventolin Nebules] 2.5 mg INH R NOW STA
Dexamethasone Sod Phosphate [Decadron] 6 mg IV NOW STA
04/01/25 21:45
Admit/Transfer Patient As Directed
Co-Sign Provider:
Level of Care: Observation services
Assign to:: Medical/Surgical
Physician / Group: Perry
Diagnosis: COVID-19, R Elbow Fracture
Splint [Braces/Immobilizers] As Directed
Type of Brace/Immobilizer: Sling
Location for Brace/Immobilizer: RUE
PRN Pain Medication Management As Directed
May give lesser potent ordered pain med per pt: Yes
preference::
Protocol:: Medication orders for pain may be administered in a
manner that supports deferring to patient preference
when the pt is:
- Requesting an ordered lesser potent pain medication.
Least to most potent pain medications are defined
as: acetaminophen < NSAID < tramadol < opioids
(morphine, oxycodone, hydromorphone).
- Requesting a lesser dose of the same medication IF
ORDERED.
- Requesting a less intrusive route of administration
if both routes are prescribed by the provider (PO <
IV).
04/01/25 21:56
Code Status As Directed
Resuscitation Status: Full Code
04/01/25 23:27
Acetaminophen [Tylenol] 650 mg PO Q4HPRN PRN
Albuterol [ProAIR HFA INHALER] 2 puff INH R Q4HPRN PRN
Tramadol HCl [Ultram] 50 mg PO Q6HPRN PRN
04/01/25 23:27
ORTHOPEDIC CONSULT Routine
Consulting Provider: Carlos Manzo
Was physician already notified: Yes
Reason for consult: R Elbow Fracture
Activity As Directed
Activity Level: Ambulate
With Assistance
I/O [Intake/ Output] As Directed
Frequency: Per unit guidelines
Precautions As Directed
Type of Precautions: Droplet
Vital Signs As Directed
Frequency: Per unit guidelines
Weight As Directed
Frequency: Daily
Oxygen Therapy [O2 Therapy] [RESP] Routine
Titrate/Wean O2 to maintain O2 sat greater than (%): 94
Ot Eval And Treat Routine
PT Consult [Pt Eval And Treat] Routine
Activity Level: Ambulate
With Assistance
04/02/25 07:39
Basic Metabolic Panel IN AM
Complete Blood Count/No Diff IN AM
04/02/25 08:00
Apixaban [Eliquis] 5 mg PO BID
Aspirin Low Dose EC [Aspir Low (Enteric Coated)] 81 mg PO DAILY
Carvedilol [Coreg] 25 mg PO BID
Famotidine [Pepcid] 40 mg PO DAILY
Furosemide [Lasix] 20 mg PO DAILY
Prednisone [Deltasone] 40 mg PO DAILY
Sacubitril 24/Valsartan 26 [Entresto 24 mg/26 mg] 1 tab PO BID
Spironolactone [Aldactone] 12.5 mg PO BID
Tamsulosin [Flomax] 0.4 mg PO DAILY
Abnormal Lab Results
04/01/25 04/01/25
15:27 19:36
RBC 3.96 L 10^6/uL
(4.70-6.10)
Hgb 12.6 L g/dL
(13.0-18.0)
Hct 37.3 L %
(39.0-52.0)
MCV 94.2 H fL
(80.0-94.0)
MCH 31.8 H pg
(27.0-31.0)
Absolute Lymphs (auto) 1.0 L 10^3/uL
(1.2-3.4)
Absolute Monos (auto) 1.0 H 10^3/uL
(0.1-0.6)
Lymphocytes % 16.9 L %
(20.5-51.1)
Monocytes % 17.6 H %
(1.7-9.3)
BUN 24 H mg/dl
(9-20)
Glucose 105 H mg/dl
(70-99)
SARS-CoV-2 Antigen Positive A
(Negative)
04/01/25 15:27
04/01/25 15:27
Vital Signs
Initial and Last Documented VS:
Initial Vital Signs
Temp Pulse Resp BP Pulse Ox
98.1 F 92 18 136/83 97
04/01/25 15:14 04/01/25 15:14 04/01/25 15:14 04/01/25 15:14 04/01/25 15:14
Last Documented Vital Signs
Temp Pulse Resp BP Pulse Ox
97.5 F 93 16 101/65 95
04/02/25 12:23 04/02/25 12:23 04/02/25 12:23 04/02/25 12:23 04/02/25 12:23
MDM/Problems Addressed
Differential Diagnosis Includes:
Patient's fall appears to be a trip but not a near syncope or syncopal episode. He is on Eliquis but has a negative head CT. He denies any neck or significant facial symptoms. He does have blood in his right maxillary sinus however. As for the
wheezing, his is COVID-positive. Clinically I doubt heart failure. We will check an EKG troponin proBNP chest x-ray and COVID testing. Also will be given a DuoNeb treatment
*Pulse Oximetry
SaO2: 97
Oxygen Mode of Delivery: Room air
Patient hypoxic: no
*EKG
Interpreted by ED Provider?: Yes
Interpretation: abnormal
Comparison EKG: no changes
Heart Rate: 85
Rate: normal
Rhythm: a-fib
Haw[place]: left axis deviation
Interval: normal interval
QRS Pattern: normal QRS
Ischemia: no ischemia
*Slag Motor Operator Interpretation
Rate: normal
Interpretation: abnormal
Heart Rate: 80
Rhythm: a-fib
*Critical Care Note
Total Time (30-74mins, 75-104mins- exclusive of procedures): Not Applicable
Data Reviewed
Review of Other/Old Records Reveals: Labs and Records
ED Attending Note
-
Portions of this chart may have been created with voice recognition software.� Occasional wrong word or��sound alike� substitutions may have occurred due to the inherent limitations of voice recognition software.
Discharge Plan
Departure
Patient Disposition: Admit
Date of Disposition: 04/01/25
Time of Disposition: 21:09
Presentation/result/management discussed w/ accepting MD/DO: Hospitalist
Discharge Problem:
COVID infection, Reactive airway component/dyspnea, Recent fall/facial injuries, Anticoagulated/chronic atrial fibrillati
Interventions
Interventions:
*Risk Screen - Suicide Last Done: 04/01/25 15:18
*General Assessment Last Done: 04/01/25 23:22
*Neglect/Abuse Screening Last Done: 04/01/25 15:18
*ED- Fall Risk Assessment Last Done: 04/01/25 22:50
*ED COVID-19 Vaccine History Last Done: 04/01/25 23:22
*ED Influenza Vaccine History Last Done: 04/01/25 23:22
*Nursing Disposition Last Done: 04/01/25 23:23
ED- Cardiac Assessment Last Done: 04/01/25 18:18
ED-Musculoskeletal Assessment Last Done: 04/01/25 18:18
ED- Neurological Assessment Last Done: 04/01/25 18:18
ED- Pulmonary Assessment Last Done: 04/01/25 18:18
ED-Skin Assessment Last Done: 04/01/25 18:18
Discharge Date and Time
Discharge Date/Time: 04/01/25 23:23
[2025-04-01] MEDS: DUONEB 3 ML INH (19:45)
[2025-04-01 20:09] LABS: COVID-19 Antigen Positive (Negative)
[2025-04-01 20:17] LABS: Troponin I < 0.012 ng/ml
[2025-04-01] MEDS: DECADRON 6 MG IV (21:41)
[2025-04-01] MEDS: VENTOLIN NEBULES 2.5 MG INH (21:41)
--- NOTE | 2025-04-01 22:12 | HPS.HSE ---
Family Physician
-
Family Physician: Eliseo Truong
Chief Complaint
-
Cough, Arm pain s/p fall
History of Present Illness
Patient is an 84y M with PMH significant for ASCVD / PAD, hypertension and prior DVT / PE (post-op) who presents to ED for evaluation of cough and pain s/p fall. Patient was recently vacationing in [place] and notes that he felt very well. He
flew to [place] in mid-February and returned home yesterday. Patient states that he started with a cough in the middle of his trip (began coughing in [place] and coughed entire flight to [facility]). He had some shaking chills as well. No chest pain. No
shortness of breath.
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 He denies any lightheadedness or dizziness. No LOC. He was evaluated by color technician and declined hospital / ED evaluation at that time. He
returned home where he continued with cough and intermittent chills throughout the evening. He noted pain in the R arm (elbow and wrist) and R hip after his fall.
Patient had a scheduled visit with his [place] physician this AM. Physician listened to his lungs and advised patient to present to the ED for further evaluation.
His has been ill with similar cough / cold symptoms and tested positive for COVID-19 with a home test just before patient presented to the ED.
Patient states that he had the initial 2 shot series of SARS-CoV-2 vaccinations. No boosters since that time.
Medical History
Past Medical History
Past Medical History: Reports Other
Additional Past Medical History:
ASCVD / PAD
History of DVT / PE (post-op)
BPH
GERD / Hiatal Hernia
Hypertension
Spinal Stenosis
Past Surgical History: Reports Other
Additional Past Surgical History:
Lumbar Fusion
Cataracts
Left Fem-Pop Bypass
Balloon Angio of LLE Bypass (02/14/25)
Social History
Tobacco: Former Smoker (Quit smoking 35 years ago.)
Alcohol: Occasional
Drug: None
Personal:
Living: With Family
Family History
Family History: Not pertinent
Allergies / Home Medications
Allergies reflects when Allergies were last updated in [facility].
Home Medications with original date entered in [facility]
Allergy/Medication List:
Allergies
Allergy/AdvReac Type Severity Reaction Status Date / Time
No Known Allergies Allergy Verified 02/14/25 10:15
Home Medications
famotidine 40 mg tablet 40 mg PO DAILY Gastrointestinal issue 10/19/21
tamsulosin 0.4 mg capsule 0.4 mg PO DAILY Urinary issue 10/19/21
glucosamine 750 [id number] no1 644 mg-C 30 mg-raffi 1 mg tablet (Osteo Bi-Flex Triple Strength) 2 tab PO DAILY Supplement 05/11/22
multivitamin 1 tab PO DAILY Supplement 05/11/22
carvedilol 25 mg tablet (Coreg) 25 mg PO BID Blood Pressure 05/09/23
sacubitril 49 mg-valsartan 51 mg tablet (Entresto) 0.5 tab PO BID heart failure 05/09/23
spironolactone 25 mg tablet 12.5 mg PO BID Fluid Retention/Swelling 05/09/23
cholecalciferol (vitamin D3) 25 mcg (1,000 unit) tablet (Vitamin D3) 25 mcg PO DAILY 05/20/23
aspirin 81 mg tablet,delayed release 81 mg PO DAILY #90 tabs 10/05/23
ascorbate calcium (vitamin C) 500 mg tablet 1,000 mg PO DAILY 06/18/24
atorvastatin 80 mg tablet 80 mg PO QPM 06/18/24
coenzyme Q10 100 mg capsule (CoQ-10) 100 mg PO DAILY 06/18/24
turmeric root extract 500 mg capsule 500 mg PO DAILY 06/18/24
furosemide 20 mg tablet 20 mg PO DAILY 02/08/25
magnesium 200 mg tablet 420 mg PO DAILY 02/08/25
pantoprazole 40 mg tablet,delayed release 40 mg PO DAILY 02/08/25
apixaban 5 mg tablet (Eliquis) 5 mg PO BID 04/01/25
Review of Systems
-
History Source: Patient
A 12 point ROS was completed and negative except as noted: Yes
Constitutional: Reports Fatigue and Chills; Denies Fever
EENT: Denies Sore Throat
Respiratory: Reports Cough; Denies Trouble Breathing
Cardiac: Denies Chest Pain or Palpitations
Abdomen/GI: Denies Abdominal Pain, Nausea, Vomiting or Diarrhea
: Denies Dysuria or Frequency
Musculoskeletal: Reports Joint Pain and Joint Swelling; Denies Edema
Neurological: Denies Dizzy or Headache
Psych: Denies Depression or Anxiety
Physical Exam
Vital Signs
Vital Signs
Temp Pulse Resp BP Pulse Ox
98.1 F 92 18 136/83 97
04/01/25 15:14 04/01/25 15:14 04/01/25 15:14 04/01/25 15:14 04/01/25 19:15
Physical Exam
General: Other (84y M in no acute distress.)
HEENT: Moist mucous membranes, PERRLA and Other (Some mild ecchymoses R face / eye.)
Respiratory: Other (Few bibasilar rales. Diffuse expiratory wheezing.)
Cardiac: S1/S2, Irregular Rhythm and Murmur (II/ KAROL)
GI: Soft, Non Tender, Non Distended and Normal Bowel Sounds
Musculoskeletal: Other (Tenderness over medial / lateral R elbow. Decreased ROM due to pain. Local edema.)
Neuro: AO x 3
Laboratory Results
-
04/01/25 15:27
04/01/25 15:27
Laboratory Results
Total Bilirubin 1.1 mg/dl (0.2-1.3) 04/01/25 15:27
AST 29 U/L (17-59) 04/01/25 15:27
ALT 19 U/L (0-50) 04/01/25 15:27
Alkaline Phosphatase 51 U/L (38-126) 04/01/25 15:27
Troponin I < 0.012 ng/ml 04/01/25 19:36
Impression/Plan
-
A/P: Patient is an 84y M with PMH significant for ASCVD, PAD, hypertension and BPH who presents to ED for evaluation of abnormal lung sounds, cough and fall.
COVID-19 Infection
- Observe overnight for further evaluation and treatment.
- No boosters since initial 2-shot vaccination series.
- Not febrile, hypoxemic, etc.
- Wheezing noted on exam and will continue steroid with prednisone 40mg PO daily for now.
- Multiple med interactions so will hold on Paxlovid for now.
- O2 support, albuterol MDI as needed.
- Follow proper precautions.
Right Elbow Fracture
Fall
- [id number] at the airport yesterday.
- CT head and R hip x-rays are unremarkable.
- R elbow x-ray shows small, nondisplaced fracture of the medial epicondyle.
- Splint placed. Pain control / supportive acre.
- Ortho consulted for additional recommendations.
ASCVD / PAD
- Stable. No chest pain / dyspnea.
- s/p recent LLE ballon angio to prior bypass. No LLE pain, etc.
- Continue current CV med regimen including ASA, Eliquis, etc.
Chronic HFpEF
- Patient with no listed dx of CHF in record.
- Echo done 12/2024 was unremarkable.
- However, appears to be on GDMT including Entresto, Aldactone, etc.
- Follow I/Os, daily weights, etc.
Permanent Atrial Fibrillation
- Stable. Continue carvedilol, Eliquis, etc.
Benign Hypertension
- Stable. Continue current med regimen.
BPH
- Stable. Continue tamsulosin.
- Bladder scan protocol.
DVT Prophylaxis
History of DVT / PE (post-op spine surgery)
- On Eliquis
Code Status: Full
[2025-04-01 22:49] VITALS: BP 127/66
[2025-04-01 23:45] VITALS: BP 133/85; BMI 30.4
--- NOTE | 2025-04-01 23:45 | PTCARENOTE ---
Pt arrived from ED via stretcher, ambulated independently. aaox3, cooperative. c/o moderate R elbow pain. medicated with prn ultram. vss. oriented to room. provided Pt with box lunch. call hernandez within reach.
[2025-04-01 23:46] VITALS: BMI 36.1
[2025-04-01] MEDS: ULTRAM 50 MG PO (23:53)
[2025-04-02 06:00] VITALS: BMI 30.5
[2025-04-02 08:16] LABS: Hematocrit 39.6 % (39.0-52.0); Hemoglobin 12.6 g/dL (13.0-18.0); Mean Corp Hgb Conc. 31.8 g/dL (33.0-37.0); Mean Corpuscular Volume 97.8 fL (80.0-94.0); Platelet Count 177 10^3/uL (130-400); Red Cell Dist. Width 12.8 % (11.5-14.5)
[2025-04-02 08:34] VITALS: BP 118/88
[2025-04-02 08:48] LABS: Blood Urea Nitrogen 24 mg/dl (9-20); Calcium 9.2 mg/dl (8.4-10.2); Carbon Dioxide 27 mmol/L (22-30); Chloride 104 mmol/L (98-107); Estimated Creatinine Clearance 68 ml/min; Glucose 146 mg/dl (70-99); Potassium 4.4 mmol/L (3.5-5.1); Sodium 137 mmol/L (135-145); eGFR > 60.00
[2025-04-02] MEDS: FLOMAX 0.4 MG PO (09:56)
[2025-04-02] MEDS: DELTASONE 40 MG PO (09:56)
[2025-04-02] MEDS: PEPCID 40 MG PO (09:56)
[2025-04-02] MEDS: ALDACTONE 12.5 MG PO (09:57)
[2025-04-02] MEDS: ENTRESTO 24 MG/26 MG 1 TAB PO (09:57)
[2025-04-02] MEDS: ELIQUIS 5 MG PO (09:57)
[2025-04-02] MEDS: COREG 25 MG PO (09:57)
[2025-04-02] MEDS: ASPIR LOW (ENTERIC COATED) 81 MG PO (09:57)
[2025-04-02] MEDS: LASIX 20 MG PO (10:05)
--- NOTE | 2025-04-02 10:24 | CM ---
CM reviewed chart and met with pt bedside in ED. Lives with his in 2 story home, 1 [address].
Independent in ADLs, personal care and ambulation at baseline. Has RW and cane but not currently using, also has shower chair.
GISELE reviewed and signed.
Hx [facility], no hx SNF
PCP: Eliseo Truong
Pharmacy: [facility]
Discharge planning pending ongoing medical evaluation, M will continue to follow.
--- NOTE | 2025-04-02 11:48 | W.PN.HOSP.TC ---
Today's Communication/Plan
-
Monitor vital signs and see plan
Discharge on p.o. prednisone and albuterol as needed
Currently feeling better and wants to go home
Continue with sling and orthopedic follow-up
Time of discharge 37 minutes
Assessment / Plan
Assessment / Plan
General: Other (84y M in no acute distress.)
HEENT: Moist mucous membranes, PERRLA and Other (Some mild ecchymoses R face / eye.)
Respiratory: + wheezing, very mild
Cardiac: S1/S2, Irregular Rhythm and Murmur (II/ KAROL)
GI: Soft, Non Tender, Non Distended and Normal Bowel Sounds
Musculoskeletal: Mild tenderness over left lateral elbow
Neuro: AO x 3
COVID-19 Infection
- No boosters since initial 2-shot vaccination series.
- Not febrile, hypoxemic, etc.
- Very mild wheezing patient is already feeling better, will continue steroid with prednisone 40mg PO daily for now. cw prednisone for 5 days
- Multiple med interactions so will hold on Paxlovid for now. on room air
- O2 support, albuterol MDI as needed.
- Follow proper precautions.
Albuterol as needed
Right Elbow Fracture
Fall
- CT head and R hip x-rays are unremarkable.
- R elbow x-ray shows small, nondisplaced fracture of the medial epicondyle.
- Splint placed. Pain control / supportive acre.
- Ortho was consulted but they didnt see patient; recommended patient to follow-up with them outpatient and to continue with sling
ASCVD / PAD
- Stable. No chest pain / dyspnea.
- s/p recent LLE balloon angio to prior bypass. No LLE pain, etc.
- Continue current CV med regimen including ASA, Eliquis, etc.
Chronic HFpEF
- Patient with no listed dx of CHF in record.
- Echo done 12/2024 was unremarkable.
- However, appears to be on GDMT including Entresto, Aldactone, etc.
- Follow I/Os, daily weights, etc.
follow up with cardiology outpatient
Permanent Atrial Fibrillation
- Stable. Continue carvedilol, Eliquis, etc.
Benign Hypertension
- Stable. Continue current med regimen.
BPH
- Stable. Continue tamsulosin.
- Bladder scan protocol.
DVT Prophylaxis
History of DVT / PE (post-op spine surgery)
- On Eliquis
Code Status: Full
Anticipated Discharge: Today
Subjective/Interval History
-
Date of Service: April 02, 2025
denies pain
Objective Data
-
Labs:
Laboratory Results
04/02/25
07:39
WBC 4.4 L
Hgb 12.6 L
Hct 39.6
Plt Count 177
Sodium 137
Potassium 4.4
Chloride 104
Carbon Dioxide 27
BUN 24 H
Creatinine 0.9
Glucose 146 H
Calcium 9.2
Vital Signs:
Vital Signs
Temp Pulse Resp BP Pulse Ox
97.8 F 80 18 118/88 95
04/02/25 08:34 04/02/25 10:05 04/02/25 08:34 04/02/25 10:05 04/02/25 08:34
I&O
04/01/25 04/02/25 04/03/25
06:59 06:59 06:59
Intake Total 480 / 480
Balance 480 / 480
--- NOTE | 2025-04-02 11:51 | CON.MD ---
Consultation - Medical
-
Consult performed by reviewing charts, radiographs and discussing with the nurse due to the patient being on isolation due to Covid
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
This can be treated nonoperatively.
Sling for comfort.
OK to come off the sling and work on ROM as tolerated
NWB RUE
Follow up in the office in 2 weeks for repeat x-rays and evaluation
Will sign off. Please call with further questions
Consultation
-
Date/Time Consultation Requested: 04/01/2025 10pm
Date/Time Consultation Performed: 04/02/2025 7am
Requesting Provider: Dr. Amador
Performing Provider: Dr. Manzo
Reason for Consultation: Right elbow fracture
--- NOTE | 2025-04-02 12:00 | W.DCSUMMARY ---
Discharge Summary
Discharge Data
Date of Admission: 04/01/25
Date of Discharge: 04/02/25
-
Pending Results: No
Hospital Course
84-year-old male with past medical history of PAD, CHF, permanent fibrillation, hypertension, BPH came to the hospital after a fall and noted wheezing in outpatient setting. Chest x-ray did not show any pneumonia. Patient appeared to be
COVID-positive so it was determined that wheezing is likely secondary to bronchitis from COVID infection. Patient was started on prednisone which improved his symptoms. On discharge he was given prednisone and an albuterol as needed for his
wheezing. On imaging he also had right elbow fracture for which orthopedics was consulted. Orthopedics recommended patient to follow-up with them closely outpatient and to use sling. Once patient symptoms continue to improve, he was then
discharged home with instructions to follow-up with all his physicians outpatient.
Discharge Plan
-
Patient Disposition: Home (Routine Discharge)
Discharge Diagnosis/Procedures: Acute COVID-19 infection
Suspect bronchitis
Right elbow fracture
Condition: Fair
Diet: As tolerated
Activity: As tolerated and Other activity
Additional Activity: OK to come off the sling and work on ROM as tolerated
NWB RUE
Driving Restrictions: As prior to admission
Bathing Restrictions: None
Referrals:
Eliseo Truong MD [Family Provider, Family Practice] - in less than 1 week
Jr Solorio DO [Active, Cardiology]
Carlos Manzo MD [Active, Orthopedics] - in one to two weeks
Prescriptions:
New
albuterol sulfate 90 mcg/actuation Hfa Aerosol Inhaler
2 puff inhalation R Q4HPRN PRN (Reason: SOB) Qty: 8.5 0RF
acetaminophen 325 mg Tablet
650 mg PO Q4HPRN PRN (Reason: Mild Pain / Temp > 101) Qty: 0 0RF
prednisone 20 mg tablet
40 mg PO DAILY 5 Days Qty: 10 0RF
Continued
famotidine 40 MG tablet
40 mg PO DAILY
tamsulosin 0.4 MG capsule
0.4 mg PO DAILY
multivitamin Tablet
1 tab PO DAILY
Osteo Bi-Flex Triple Strength 750 mg-644 mg- 30 mg-1 mg Tablet
2 tab PO DAILY
carvedilol [Coreg] 25 mg Tablet
25 mg PO BID
sacubitril-valsartan [Entresto] 49-51 mg Tablet
0.5 tab PO BID
Patient Comments:
05/09/23-[facility]
spironolactone 25 mg tablet
12.5 mg PO BID
cholecalciferol (vitamin D3) [Vitamin D3] 25 mcg (1,000 unit) Tablet
25 mcg PO DAILY
aspirin 81 mg Tablet,Delayed Release (Dr/Ec)
81 mg PO DAILY Qty: 90 0RF
atorvastatin 80 mg Tablet
80 mg PO QPM
turmeric root extract 500 mg Capsule
500 mg PO DAILY
ascorbate calcium (vitamin C) 500 mg Tablet
1,000 mg PO DAILY
coenzyme Q10 [CoQ-10] 100 mg Capsule
100 mg PO DAILY
pantoprazole 40 mg Tablet,Delayed Release (Dr/Ec)
40 mg PO DAILY
furosemide 20 mg Tablet
20 mg PO DAILY
magnesium 200 mg Tablet
420 mg PO DAILY
Eliquis 5 mg Tablet
5 mg PO BID
Discharge Orders:
Discharge Patient (As Directed); Ordered 04/02/25
Ordered By: Mohit Horne
Discharge Date and Time
Discharge Date/Time: 04/02/25 14:10
Print Language: [id number]
[2025-04-02 12:23] VITALS: BP 101/65
== END 2025-04-02 14:10 | disposition home or self-care (01) ==
LOC: 1 ACUTE 22:38
PROVIDERS: Emergency Medicine; ADMITTING PHYSICIAN Hospitalist; ATTENDING PHYSICIAN Internal Medicine; CONSULT PHYSICIAN Orthopaedic Surgery; EMERGENCY PHYSICIAN Emergency Medicine; FAMILY PHYSICIAN Family Medicine
DX: U07.1 COVID-19 (principal); S42.464A Nondisplaced fracture of medial condyle of right humerus, initial encounter for closed fracture; W01.0XXA Fall on same level from slipping, tripping and stumbling without subsequent striking against object, initial encounter; Z79.899 Other long term (current) drug therapy; Z87.891 Personal history of nicotine dependence; I25.10 Atherosclerotic heart disease of native coronary artery without angina pectoris; I50.32 Chronic diastolic (congestive) heart failure; I11.0 Hypertensive heart disease with heart failure; I48.21 Permanent atrial fibrillation; M19.021 Primary osteoarthritis, right elbow; N40.0 Benign prostatic hyperplasia without lower urinary tract symptoms; Z79.01 Long term (current) use of anticoagulants
CPT/HCPCS: 70450; 71046; 73060; 73080; 73502; 80048; 80053; 83880; 84484; 85025; 85027; 87502; 87811; 93005; 94640; 96374; 97161; 97166; 99285